=== PATIENT | female | born 1995 | race Caucasian/White ===

== ENCOUNTER 2016-05-15 23:52 | Emergency (ER) | payer OTHER ==
[2016-05-16] MEDS ORDERED: Ondansetron INJ* 2 MG/ML VIAL IV ONE
[2016-05-16] MEDS: Morphine INJ* 4 MG/ML 1 ML CARPUJECT IV ONE ×2 (00:45→00:50)
[2016-05-16 01:14] LABS: Hematocrit 38 % (35-47); Hemoglobin 12.6 g/dl (12.0-16.0); Mean Corpuscular HGB Conc 34 g/dl (31-36); Mean Corpuscular Hemoglobin 29 pg (27-31); Mean Corpuscular Volume 87 fL (80-97); Mean Platelet Volume 9 um3 (7.4-10.4); Red Blood Count 4.35 10^6/ul (4.0-5.4); Red Cell Distribution Width 13 % (10.5-15); White Blood Count 6.2 10^3/ul (3.5-10.8)
[2016-05-16 01:22] LABS: Budding Yeast Present (Absent); Urine Bacteria 1+ (Absent); Urine Bilirubin Negative (Negative); Urine Glucose Negative (Negative); Urine Nitrite Negative (Negative)
[2016-05-16 01:28] LABS: ALT 9 U/L (7-52); AST 14 U/L (13-39); Albumin 3.9 g/dL (3.2-5.2); Alkaline Phosphatase 52 U/L (34-104); Anion Gap 5 mmol/L (2-11); BUN/Creatinine Ratio 16.5 (8-20); Blood Urea Nitrogen 13 mg/dL (6-24); C Reactive Protein 22.23 mg/L (< 5.00); CO2 Carbon Dioxide 27 mmol/L (22-32); Calcium 8.7 mg/dL (8.6-10.3); Chloride 102 mmol/L (101-111); EGFR African American 120.6 (>60); EGFR Non-African American 93.8 (>60); Globulin 2.6 g/dL (2-4); Glucose 90 mg/dL (70-100); Lipase 13 U/L (11.0-82.0); Magnesium 1.7 mg/dL (1.9-2.7); Potassium 3.7 mmol/L (3.5-5.0); Sodium 134 mmol/L (133-145); Total Protein 6.5 g/dL (6.4-8.9)
[2016-05-16] MEDS ORDERED: Magnesium Oxide TAB* 400 MG PO ONE (01:46)
[2016-05-16] MEDS ORDERED: NS 0.9% 1000 ML* 1,000 ML IV ONE ×2 (01:46)
[2016-05-16] MEDS ORDERED: cefTRIAXone(*) 1 GM in NS 0.9% 50 ML* 50 ML IVPB ONE (01:46)
[2016-05-16] MEDS ORDERED: Ondansetron ODT TAB* 4 MG PO ONE (01:49)
--- NOTE | 2016-05-16 02:01 | ED ---
I, Oh,Meena, scribed for Gaby Tinoco MD on 05/16/16 at 0030 . 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 Abd pain worsens with food intake , and pt reports n/v x3 2 days ago after eating. She also reports subjective "hot/cold flashes", diaphoresis, and abd bloating. LMP was 04/28/2016. She denies any PMHx or any regular medication. She does not take any control. She lives in a dorm. - History of Current Complaint Chief Complaint: EDNauseaVomitDiarrh Stated Complaint: VOMITING/NAUSEA Time Seen by Provider: 05/15/16 23:59 Hx Obtained From: Patient Onset/Duration: Gradual Onset, Still Present Timing: Constant Pain Intensity: 7 Pain Scale Used: 0-10 Numeric Location: Diffuse Radiates: No Character: Cramping Aggravating Factor(s): Food Alleviating Factor(s): Nothing Associated Signs and Symptoms: Positive: Diaphoresis, Fever, Decreased Appetite , Nausea, Vomiting. Negative: Urinary Symptoms Allergies/Adverse Reactions: Allergies Allergy/AdvReac Type Severity Reaction Status Date / Time No Known Allergies Allergy Verified 05/16/16 00:01 PMH/Surg Hx/FS Hx/Imm Hx Previously Healthy: No - Denies any PMHx Infectious Disease History: No Infectious Disease History: Denies: Traveled Outside the [place] in Last 30 Days - Family History Known Family History: Positive: Cardiac Disease - father with pacemaker. - Social History Occupation: Student - [employer] Alcohol Use: Occasionally Hx Substance Use: No Substance Use Type: Reports: None Hx Tobacco Use: No Smoking Status (MU): Never Smoked Tobacco Review of Systems Positive: Fever, Chills, Skin Diaphoresis Positive: Abdominal Pain, Vomiting, Nausea, Other - decreased appetite Negative: dysuria Negative: Anxious, Depressed All Other Systems Reviewed And Are Negative: Yes Physical Exam Triage Information Reviewed: Yes Vital Signs On Initial Exam: Initial Vitals Temp Pulse Resp BP Pulse Ox 98 F 92 18 126/74 98 05/15/16 23:58 05/15/16 23:58 05/15/16 23:58 05/15/16 23:58 05/15/16 23:58 Vital Signs Reviewed: Yes Appearance: Positive: Well-Appearing, No Pain Distress Skin: Positive: Warm, Skin Color Reflects Adequate Perfusion, Dry Head/Face: Positive: Normal Head/Face Inspection Eyes: Positive: EOMI, SEEMA, Conjunctiva Clear Neck: Positive: Supple, Nontender Respiratory/Lung Sounds: Positive: Clear to Auscultation, Breath Sounds Present Cardiovascular: Positive: RRR, Pulses are Symmetrical in both Upper and Lower Extremities. Negative: Leg Edema Left, Leg Edema Right Abdomen Description: Positive: Nontender, No Organomegaly, Soft Bowel Sounds: Positive: Present Musculoskeletal: Positive: Strength/ROM Intact Neurological: Positive: Sensory/Motor Intact, Alert, Oriented to Person Place, Time Diagnostics - Vital Signs Vital Signs Temp Pulse Resp BP Pulse Ox 05/15/16 23:58 98 F 92 18 126/74 98 - Laboratory Lab Results: Lab Results 05/16/16 05/16/16 05/16/16 Range/Units 00:40 00:40 00:40 WBC 6.2 (3.5-10.8) 10^3/ul RBC 4.35 (4.0-5.4) 10^6/ul Hgb 12.6 (12.0-16.0) g/dl Hct 38 (35-47) % MCV 87 (80-97) fL MCH 29 (27-31) pg MCHC 34 (31-36) g/dl RDW 13 (10.5-15) % Plt Count 234 (150-450) 10^3/ul MPV 9 (7.4-10.4) um3 Neut % (Auto) 65.3 (38-83) % Lymph % (Auto) 24.2 L (25-47) % [place] % (Auto) 9.7 H (1-9) % Eos % (Auto) 0.6 (0-6) % Baso % (Auto) 0.2 (0-2) % Absolute Neuts (auto) 4.1 (1.5-7.7) 10^3/ul Absolute Lymphs (auto) 1.5 (1.0-4.8) 10^3/ul Absolute Monos (auto) 0.6 (0-0.8) 10^3/ul Absolute Eos (auto) 0 (0-0.6) 10^3/ul Absolute Basos (auto) 0 (0-0.2) 10^3/ul Absolute Nucleated RBC 0.01 10^3/ul Nucleated RBC % 0.1 Sodium 134 (133-145) mmol/L Potassium 3.7 (3.5-5.0) mmol/L Chloride 102 (101-111) mmol/L Carbon Dioxide 27 (22-32) mmol/L Anion Gap 5 (2-11) mmol/L BUN 13 (6-24) mg/dL Creatinine 0.79 (0.51-0.95) mg/dL Est GFR ( Amer) 120.6 (>60) Est GFR (Non-Af Amer) 93.8 (>60) BUN/Creatinine Ratio 16.5 (8-20) Glucose 90 (70-100) mg/dL Calcium 8.7 (8.6-10.3) mg/dL Magnesium 1.7 L (1.9-2.7) mg/dL Total Bilirubin 0.40 (0.2-1.0) mg/dL AST 14 (13-39) U/L ALT 9 (7-52) U/L Alkaline Phosphatase 52 (34-104) U/L C-Reactive Protein 22.23 H (< 5.00) mg/L Total Protein 6.5 (6.4-8.9) g/dL Albumin 3.9 (3.2-5.2) g/dL Globulin 2.6 (2-4) g/dL Albumin/Globulin Ratio 1.5 (1-3) Lipase 13 (11.0-82.0) U/L Beta HCG, Quant < 0.60 mIU/mL Urine Color Yellow Urine Appearance Cloudy Urine pH 5.0 (5-9) Ur Specific [place] 1.026 (1.010-1.030) Urine Protein Negative (Negative) Urine Ketones Trace H (Negative) Urine Blood 2+ H (Negative) Urine Nitrate Negative (Negative) Urine Bilirubin Negative (Negative) Urine Urobilinogen Negative (Negative) Ur Leukocyte Esterase 3+ H (Negative) Urine WBC (Auto) 3+(>20/hpf) H (Absent) Urine RBC (Auto) 3+(>10/hpf) H (Absent) Ur Squamous Epith Cells Present H (Absent) Ur Transition Epith Cell Present H (Absent) Urine Bacteria 1+ H (Absent) Urine Yeast Present H (Absent) Urine Glucose Negative (Negative) Result Diagrams: 05/16/16 00:40 05/16/16 00:40 Lab Statement: Any lab studies that have been ordered have been reviewed, and results considered in the medical decision making process. Re-Evaluation - Re-Evaluation First Eval Re-Evaluation Time: 01:45 Change: Improved Comment: MD in room to re-evaluate pt and share bloodwork and UA results. Plan of care involving discharge is discussed, and pt is agreeable. Abdominal Pain Fem Course/Dx - Course Course Of Treatment: THis 20 y/o female presents to ED for diffuse abd pain since 3 days ago. Pt report n/v, subjective fever/chills, and diaphoresis. Bloodwork is wnl except elevated CRP of 22.23, and UA indicates UTI with 3+ WBC , RBC, leuk, and positive bacteria and yeast. Plan of care involving discharge and outpatient follow up with [facility] is discussed, and pt is agreeable. plan is to give her one dose of ceftriaxone here with macrobid script at [facility] - Diagnoses Provider Diagnoses: Abdominal pain Discharge - Discharge Plan Condition: Stable Disposition: HOME Prescriptions: Nitrofurantoin Monohyd Macro [Macrobid] 100 mg PO BID #10 cap Ondansetron ODT TAB* [Zofran Odt TAB*] 4 mg PO Q8H PRN #10 tab.odt PRN Reason: Nausea Patient Education Materials: Nitrofurantoin (By mouth), Ondansetron (By mouth) , Urinary Tract Infection in Women (ED), Gastroenteritis (ED) Referrals: [facility] AYDEN Ahuja [Primary Care Provider] - 2 Days The documentation as recorded by the Maksim puente Soohyun accurately reflects the service I personally performed and the decisions made by me, Gaby Tinoco MD.
[2016-05-16 03:27] VITALS: BP 107/68
== END 2016-05-16 03:30 | disposition home or self-care (01) ==
LOC: ED 23:52
DX: R10.9 Unspecified abdominal pain (principal); R50.9 Fever, unspecified; R11.2 Nausea with vomiting, unspecified
CPT/HCPCS: 36415; 80053; 81003; 81015; 83690; 83735; 84702; 85025; 86140; 87086; 96361; 96374; 96375; 99283; A9270-GY; J0696; J2270; J2405